=== PATIENT | male | born 1980 | race Two or more races ===

== ENCOUNTER 2017-05-02 13:24 | Emergency (ER) | payer OTHER ==
[2017-05-02 13:29] VITALS: BP 135/74; PULSE 71; TEMP 98.5; BMI 27.3
[2017-05-02] MEDS ORDERED: IBUPROFEN 600 MG TABLET (FP) PO ONE ×2 (14:56→14:59)
--- NOTE | 2017-05-02 15:00 | PDOC ---
History of Present Illness - General Chief Complaint: Laceration Stated Complaint: INJURY Time Seen by Provider: 05/02/17 14:07 History Source: Patient Exam Limitations: No Limitations - History of Present Illness Initial Comments: 05/02/17 14:55 Patient was cutting tile, slipped and incised right hand on the distal dorsal aspect just distal to MCP of right thumb. Able to flex and extend, has a small bleed but not pulsatile. Denies numbness to distal tip Timing/Duration: reports: just prior to arrival Severity: Yes: mild, moderate Location: reports: hands (right thumb) Past History - Travel Traveled outside of the country in the last 30 days: No Close contact w/someone who was outside of country & ill: No - Past Medical History Allergies/Adverse Reactions: Allergies Allergy/AdvReac Type Severity Reaction Status Date / Time No Known Allergies Allergy Verified 05/02/17 13:26 Home Medications: Ambulatory Orders NK [No Known Home Medication] 07/28/14 Other medical history: none - Suicide/Smoking/Psychosocial Hx Smoking History: Never smoked Number of Cigarettes Smoked Daily: 1 Cigars Per Day: 0 Information on smoking cessation initiated: No Hx Alcohol Use: No Drug/Substance Use Hx: No Substance Use Type: None Review of Systems - Review of Systems Able to Perform ROS?: Yes Is the patient limited Ukrainian proficient: Yes Constitutional: Yes: Symptoms Reported, See HPI, Malaise HEENTM: No: Symptoms Reported Musculoskeletal: Yes: Symptoms Reported, See HPI, Joint Pain Integumentary: Yes: Symptoms Reported, Other (laceration ) *Physical Exam - Vital Signs Last Vital Signs Temp Pulse Resp BP Pulse Ox 98.5 F 71 18 135/74 100 05/02/17 13:27 05/02/17 13:27 05/02/17 13:27 05/02/17 13:27 05/02/17 13:27 - Physical Exam General Appearance: Yes: Appropriately Dressed, Apparent Distress, Mild Distress HEENT: positive: AL, Normal ENT Inspection, TMs Normal, Pharynx Normal Neck: positive: Supple Extremity: positive: Normal Capillary Refill, Normal Range of Motion (able to flex and extend against resistance, has 2 cm laceration across dorsal aspect of proximal phalanx of right thumb. Sensation intact distal to injury. No structures noted) Integumentary: positive: Normal Color, Dry, Warm Neurologic: positive: actuary manager II-XII NML intact, Fully Oriented, Alert, Normal Mood/ Affect, Normal Response, Motor Strength 5/5 Procedures - Laceration/Wound Repair Right Dorsal Finger Wound Length: to 2.5 cm Wound Explored: clean Wound's Depth, Shape: superficial, into muscle, linear Irrigated w/ Saline: Yes Betadine Prep: Yes Anesthesia: 1% Lidocaine Wound Repaired With: Sutures Suture Size/Type: 5:0 Number of Sutures: 6 Sterile Dressing Applied: Yes Splint Applied: Yes (finger ) Progress Note - Progress Note Progress Note: , Splint provided, patient instructed to follow-up in 10-14 days for suture removal *DC/Admit/Observation/Transfer Diagnosis at time of Disposition: Laceration of right thumb Qualifiers: Encounter type: initial encounter Damage to nail status: without damage Foreign body presence: without foreign body Qualified Code(s): S61.011A - Laceration without foreign body of right thumb without damage to nail, initial encounter; S61.011A - Laceration without foreign body of right thumb without damage to nail, initial encounter - Discharge Dispostion Disposition: HOME Condition at time of disposition: Stable Admit: No - Patient Instructions Printed Discharge Instructions: DI for Laceration Repair Additional Instructions: Rest, elevate, avoid strenuous activity or heavy lifting until sutures are removed Leave dressing on for the next 24 hours, Then may remove dressing gently and wash area with soap and water. Reapply bacitracin ointment and dressing daily for the next 5 days On day #6 keep the wound protected and cover as needed until sutures are removed allowing wound to start to dry May use Tylenol or Motrin for pain relief Suture removal in : 10- 14 Days
== END 2017-05-02 15:05 | disposition home or self-care (01) ==
LOC: JERFT 13:24
PROC: 0HQFXZZ Repair Right Hand Skin, External Approach (ICD-10-PCS; principal; 2017-05-02)
DX: S61.011A Laceration without foreign body of right thumb without damage to nail, initial encounter (principal); W29.8XXA Contact with other powered hand tools and household machinery, initial encounter; Y93.89 Activity, other specified; Y92.9 Unspecified place or not applicable; Y99.0 Civilian activity done for income or pay
CPT/HCPCS: 99281-25

== ENCOUNTER 2017-05-18 12:22 | Emergency (ER) | payer OTHER ==
[2017-05-18 12:25] VITALS: BP 129/62; PULSE 57; TEMP 98.2; BMI 27.3
--- NOTE | 2017-05-18 12:42 | PDOC ---
Suture Removal/Wound Check HPI - History of Present Illness Chief Complaint: Suture/Staple Removal(Here) Stated Complaint: SUTURE REMOVAL Time Seen by Provider: 05/18/17 12:34 Exam Limitations: Yes: No Limitations Treated at: [facility] Sof[facility] Lopez Date of Last ED visit: 05/02/17 - Previous ED Treatment Type of procedure performed on last visit: Yes: Laceration Repair (right thumb) Tetanus Immunization: Yes: Up to Date Past History - Past Medical History Allergies/Adverse Reactions: Allergies Allergy/AdvReac Type Severity Reaction Status Date / Time No Known Allergies Allergy Verified 05/18/17 12:25 Home Medications: Ambulatory Orders NK [No Known Home Medication] 07/28/14 - Suicide/Smoking/Psychosocial Hx Smoking History: Never smoked Number of Cigarettes Smoked Daily: 1 Cigars Per Day: 0 Hx Alcohol Use: No Drug/Substance Use Hx: No Substance Use Type: None Suture Removal/Wound Check PE - Physical Exam Laceration/Wound Check Symptoms: reports: None Comments: 05/18/17 12:45 right thumb with simple sutures placed well healed edges well approximated *Review of Systems - Review of Systems Able to Perform ROS?: Yes Constitutional: No: Symptoms Reported Procedures - Additional Procedures Progress: 05/18/17 12:45 7 simple interrupted sutures removed from right thumb nv intact FROM edges well healed *DC/Admit/Observation/Transfer Diagnosis at time of Disposition: Suture Removal from skin - Discharge Dispostion Disposition: HOME Condition at time of disposition: Good - Patient Instructions Printed Discharge Instructions: DI for Suture Removal
== END 2017-05-18 12:49 | disposition home or self-care (01) ==
LOC: JERFT 12:22
DX: Z48.02 Encounter for removal of sutures (principal)
CPT/HCPCS: 99281-25

== ENCOUNTER 2019-06-07 18:59 | Emergency (ER) | payer OTHER ==
--- NOTE | 2019-06-07 19:18 | PDOC ---
Rapid Medical Evaluation Time Seen by Provider: 06/07/19 19:16 Medical Evaluation: Allergies Allergy/AdvReac Type Severity Reaction Status Date / Time No Known Allergies Allergy Verified 05/18/17 12:25 06/07/19 19:17 I have performed a brief in-person evaluation of this patient. The patient presents with a chief complaint of: flank pain Pertinent physical exam findings:stable and in NAD, non-focal I have ordered the following:labs The patient will proceed to the ED for further evaluation.
[2019-06-07 19:20] VITALS: BMI 20.9
--- NOTE | 2019-06-07 20:42 | PDOC ---
History of Present Illness - General Chief Complaint: Pain, Acute Stated Complaint: BACK PAIN Time Seen by Provider: 06/07/19 19:16 - History of Present Illness Initial Comments: 06/07/19 20:42 CHIEF COMPLAINT: R flank pain HISTORY OF PRESENT ILLNESS: 38 yo M with no PMH presents to ED with intermittent pain to R flank since this afternoon around 4:30pm. Denies any difficulty with urination, denies hematuria. Denies nausea, vomiting, diarrhea. Patient denies any pain at time of exam. No recent travel or sick contacts. PAST MEDICAL HISTORY: Denies past medical history FAMILY HISTORY: Denies SOCIAL HISTORY: Denies tobacco, alcohol, illicit drug use. SURGICAL HISTORY: Denies ALLERGIES: No known drug allergies REVIEW OF SYSTEMS General/Constitutional: Denies fever or chills. Denies weakness, weight change. HEENT: Denies change in vision. Denies ear pain or discharge. Denies sore throat. Cardiovascular: Denies chest pain or shortness of breath. Respiratory: Denies cough, wheezing, or hemoptysis. Gastrointestinal: Denies nausea, vomiting, diarrhea or constipation. Denies rectal bleeding. Genitourinary: Denies dysuria, frequency, or change in urination. Musculoskeletal: R flank pain. Denies joint or muscle swelling or pain. Denies neck or back pain. Skin and breasts: Denies rash or easy bruising. Neurologic: Denies headache, vertigo, loss of consciousness, or loss of sensation. Psychiatric: Denies depression or anxiety. PHYSICAL EXAM General Appearance: Well-appearing, appropriately dressed. No apparent distress , no intoxication. HEENT: EOMI, PERRLA, normal ENT inspection, normal voice, TMs normal, pharynx normal. No conjunctival pallor. No photophobia, scleral icterus. Neck: Supple. Trachea midline. No tenderness, rigidity, carotid bruit, stridor , lymphadenopathy, or thyromegaly. Respiratory/Chest: Lungs CTAB. No shortness of breath, chest tenderness, respiratory distress, accessory muscle use. No crackles, rales, rhonchi, stridor , wheezing, dullness Cardiovascular: RRR. S1, S2. No JVD, murmur, bradycardia, tachycardia. Vascular Pulses: Dorsalis-Pedis (R): 2+, Dorsalis-Pedis (L): 2+ Gastrointestinal/Abdominal: Normal bowel sounds. Abdomen soft, non-distended. No tenderness or rebound tenderness. No organomegaly, pulsatile mass, guarding , hernia, hepatomegaly, splenomegaly. Lymphatic: No adenopathy, tenderness. Musculoskeletal/Extremities: Normal inspection. FROM of all extremities, normal capillary refill. Pelvis Stable. No CVA tenderness. No tenderness to extremities, pedal edema, swelling, erythema or deformity. Integumentary: Appropriate color, dry, warm. No cyanosis, erythema, jaundice or rash Neurologic: foot setter II-XII intact. Fully oriented, alert. Appropriate mood/affect. Motor strength 5/5. No appreciable EOM palsy, facial droop or sensory deficit. Past History - Past Medical History Allergies/Adverse Reactions: Allergies Allergy/AdvReac Type Severity Reaction Status Date / Time No Known Allergies Allergy Verified 06/07/19 22:20 Home Medications: Ambulatory Orders Ketorolac Tromethamine [Toradol] 10 mg PO TID #21 tablet 06/07/19 COPD: No - Psycho Social/Smoking Cessation Hx Smoking History: Never smoked Number of Cigarettes Smoked Daily: 1 Cigars Per Day: 0 Hx Alcohol Use: No Drug/Substance Use Hx: No Substance Use Type: None *Physical Exam - Vital Signs Last Vital Signs Temp Pulse Resp BP Pulse Ox 98.8 F 62 19 147/65 97 06/07/19 19:17 06/07/19 19:17 06/07/19 19:17 06/07/19 19:17 06/07/19 19:17 ED Treatment Course - LABORATORY CBC & Chemistry Diagram: 06/07/19 20:50 06/07/19 20:50 Medical Decision Making - Medical Decision Making 06/08/19 00:14 38 yo M with no PMH presents to ED with intermittent pain to R flank since this afternoon around 4:30pm. -labs, urine -toradol -renal US US negative for stones but reveals L renal cyst. Patient reassessed after administration of meds and fluids; at this time he states he feels much better. Given RBC in urine with turbid appearance with clinical presentation, patient likely passed kidney stone prior to arrival. Lab and US findings discussed with patient; advised patient to f/u with urology. Patient verbalized understanding and agrees to plan. Discharge - Discharge Information Problems reviewed: Yes Clinical Impression/Diagnosis: Renal cyst Condition: Stable Disposition: HOME - Admission No - Additional Discharge Information Prescriptions: Ketorolac Tromethamine [Toradol] 10 mg PO TID #21 tablet - Follow up/Referral Referrals: Leroy Flores MD [Staff Physician] - - Patient Discharge Instructions Additional Instructions: Please take medications as prescribed. Follow up with the urologist within the next week for further evaluation of your symptoms. If you develop any fever, vomiting, diarrhea, worsening pain, or any new or worsening symptoms, please return to the ER. - Post Discharge Activity
[2019-06-07] MEDS ORDERED: KETOROLAC TROMETHAMINE 30 MG/1 ML VIAL IVPUSH ONE (20:47)
[2019-06-07] MEDS ORDERED: SODIUM CHLORIDE 0.9% 500 ML INFUS.BAG IV ONE (20:49)
[2019-06-07 20:57] LABS: BASO % 1.1 % (0-2.0); EOS % 0.6 % (0-4.5); HEMATOCRIT 43.9 % (35.4-49); HEMOGLOBIN 14.8 GM/dL (11.7-16.9); LYMPH % 20.7 % (8-40); MCH 31.6 pg (25.7-33.7); MCHC 33.6 g/dl (32.0-35.9); MEAN PLT VOLUME 7.6 fl (7.5-11.1); MONO % 7.3 % (3.8-10.2); NEUT % 70.3 % (42.8-82.8); PLATELET COUNT 225 K/MM3 (134-434); RBC 4.67 M/mm3 (4.00-5.60); RDW 13.5 % (11.9-15.9); WHITE BLOOD COUNT 9.2 K/mm3 (4.0-10.0)
[2019-06-07] MEDS ORDERED: KETOROLAC TROMETHAMINE 15 MG/ML VIAL ONE (20:57)
[2019-06-07 21:25] LABS: EPI CELLS 1.2 /HPF (0-5/HPF); HYALINE CASTS 4 /lpf (0-8); URINE APPEARANCE TURBID; URINE BACTERIA 1.7 /hpf (NEGATIVE); URINE BILIRUBIN NEGATIVE (NEGATIVE); URINE COLOR YELLOW; URINE GLUCOSE (UA) NEGATIVE (NEGATIVE); URINE KETONE TRACE (NEGATIVE); URINE LEUK ESTERASE NEGATIVE (NEGATIVE); URINE NITRITE NEGATIVE (NEGATIVE); URINE PROTEIN TRACE (NEGATIVE); URINE RBC 19 /hpf (0-4); URINE WBC 0 /hpf (0-5)
[2019-06-07 21:31] LABS: ALBUMIN 4.4 g/dl (3.4-5.0); BILIRUBIN,TOTAL 0.7 mg/dL (0.2-1); BLOOD UREA NITROGEN 14.9 mg/dL (7-18); CALCIUM 9.1 mg/dL (8.5-10.1); CREATININE 1.1 mg/dL (0.55-1.3); POTASSIUM 4.1 mmol/L (3.5-5.1); TOT PROT 7.5 g/dl (6.4-8.2)
--- NOTE | 2019-06-07 23:09 | PDOC ---
*Physical Exam - Vital Signs Last Vital Signs Temp Pulse Resp BP Pulse Ox 98.4 F 66 17 123/72 96 06/07/19 20:20 06/07/19 20:20 06/07/19 20:20 06/07/19 20:20 06/07/19 20:20 ED Treatment Course - LABORATORY CBC & Chemistry Diagram: 06/07/19 20:50 06/07/19 20:50 - ADDITIONAL ORDERS Additional order review: Laboratory Results 06/07/19 06/07/19 20:56 20:50 Sodium 140 Potassium 4.1 Chloride 108 H Carbon Dioxide 29 Anion Gap 3 L BUN 14.9 Creatinine 1.1 Est GFR (CKD-EPI)AfAm 99.57 Est GFR (CKD-EPI)NonAf 85.91 Random Glucose 94 Calcium 9.1 Total Bilirubin 0.7 AST 15 ALT 30 Alkaline Phosphatase 68 Total Protein 7.5 Albumin 4.4 Urine Color Yellow Urine Appearance Turbid Urine pH 7.0 Ur Specific [place] 1.033 Urine Protein Trace Urine Glucose (UA) Negative Urine Ketones Trace H Urine Blood Trace Urine Nitrite Negative Urine Bilirubin Negative Urine Urobilinogen 1.0 Ur Leukocyte Esterase Negative Urine WBC (Auto) 0 Urine RBC (Auto) 19 Urine Casts (Auto) 4 U Epithel Cells (Auto) 1.2 Urine Bacteria (Auto) 1.7 06/07/19 20:50 RBC 4.67 MCV 94.0 MCHC 33.6 RDW 13.5 MPV 7.6 Neutrophils % 70.3 Lymphocytes % 20.7 Monocytes % 7.3 Eosinophils % 0.6 Basophils % 1.1 - Medications Given in the ED: ED Medications Discontinued Medications Generic Name Dose Route Start Last Admin Trade Name Binta PRN Reason Stop Dose Admin Ketorolac Tromethamine 15 mg 06/07/19 20:47 06/07/19 21:14 Toradol Injection - IVPUSH 06/07/19 20:48 15 mg ONCE ONE Administration Sodium Chloride 1,000 ml 06/07/19 20:49 06/07/19 21:14 Normal Saline - IV 06/07/19 20:50 1,000 ml ONCE ONE Administration Medical Decision Making - Medical Decision Making 06/07/19 23:08 Case reviewed agree with assessment and plan Discharge - Discharge Information Problems reviewed: Yes Clinical Impression/Diagnosis: Renal cyst Condition: Stable Disposition: HOME - Additional Discharge Information Prescriptions: Ketorolac Tromethamine [Toradol] 10 mg PO TID #21 tablet - Follow up/Referral Referrals: Leroy Flores MD [Staff Physician] - - Patient Discharge Instructions Additional Instructions: Please take medications as prescribed. Follow up with the urologist within the next week for further evaluation of your symptoms. If you develop any fever, vomiting, diarrhea, worsening pain, or any new or worsening symptoms, please return to the ER. - Post Discharge Activity
[2019-06-07 23:57] VITALS: BP 126/71; PULSE 68; TEMP 98.1
== END 2019-06-07 23:55 | disposition home or self-care (01) ==
LOC: JER 18:59
PROC: 3E0333Z Introduction of Anti-inflammatory into Peripheral Vein, Percutaneous Approach (ICD-10-PCS; principal; 2019-06-07)
DX: N28.1 Cyst of kidney, acquired (principal)
CPT/HCPCS: 36415; 76775-TC; 80053; 81003; 85025; 87077; 87086; 99283-25

== ENCOUNTER 2019-07-21 23:35 | Emergency (ER) | payer OTHER ==
--- NOTE | 2019-07-22 00:38 | PDOC ---
History of Present Illness - General Stated Complaint: SWOLLEN FACE - History of Present Illness Initial Comments: 07/22/19 00:49 38 year old man with no pmhx who presents with 4 days or R sided jaw pain, swelling and inability to open the mouth. The patient denies any fevers, dental issues or tooth pain, denies trauma, denies any recent medication changes. Has no other complaints. ROS GENERAL/CONSTITUTIONAL: No fever or chills. No weakness. HEAD, EYES, EARS, NOSE AND THROAT: No change in vision. No ear pain or discharge. No sore throat. CARDIOVASCULAR: No chest pain or shortness of breath RESPIRATORY: No cough, wheezing, or hemoptysis. GASTROINTESTINAL: No nausea, vomiting, diarrhea or constipation. GENITOURINARY: No dysuria, frequency, or change in urination. MUSCULOSKELETAL: No joint or muscle swelling or pain. No neck or back pain. SKIN: No rash NEUROLOGIC: No headache, vertigo, loss of consciousness, or change in strength/ sensation. PE GENERAL: Awake, alert, and fully oriented, in no acute distress HEAD: + R sided facial swelling, + ttp of R mandible EYES: EOMI, sclera anicteric, conjunctiva clear ENT: + trismus, no tonsillar swelling, erythema, no uvular swelling or deviations NECK: Normal ROM, supple, no lymphadenopathy, JVD, or masses LUNGS: No distress, speaks full sentences, clear to auscultation bilaterally HEART: Regular rate and rhythm, normal S1 and S2, no murmurs, rubs or gallops, peripheral pulses normal and equal bilaterally. ABDOMEN: Soft, nontender No guarding, no rebound. No masses EXTREMITIES : Normal inspection, Normal range of motion, no edema. No clubbing or cyanosis. NEUROLOGICAL: Cranial nerves II through XII grossly intact. Normal speech, no focal sensorimotor deficits SKIN: Warm, Dry, normal turgor, no rashes or lesions noted MDM DDX including but not limited to: r/o ludwigs angina vs abscess ED Course: labs wnl CT showed Impression. Enlarged lingual, palatine tonsils. Left-sided tonsillolith. Hypodense focus is seen in the lateral aspect of the right palatine tonsils, base of the tongue concerning for phlegmonous changes, without visible abscess. Reactive enlargement of the right jugulodigastric lymph node with enhancement. Enhancing reactive lymph nodes are noted in the right posterior cervical space, right submandibular enhancing reactive lymph nodes. Thickened right platysma with infiltration of the subcutaneous fat along the lateral surface of the right masseter muscle. Patent airways. No evidence of retropharyngeal fluid collection, edema. Patient would most benefit from OMFS evaluation as he has significant trismus [facility] Plan for transfer Kadie Trivedi, PGY2 Emergency Medicine Past History - Past Medical History Allergies/Adverse Reactions: Allergies Allergy/AdvReac Type Severity Reaction Status Date / Time No Known Allergies Allergy Verified 06/07/19 22:20 Home Medications: Ambulatory Orders NK [No Known Home Medication] 07/22/19 COPD: No - Psycho Social/Smoking Cessation Hx Smoking History: Never smoked Number of Cigarettes Smoked Daily: 1 Cigars Per Day: 0 Hx Alcohol Use: No Drug/Substance Use Hx: No Substance Use Type: None ED Treatment Course - LABORATORY CBC & Chemistry Diagram: 07/22/19 01:00 07/22/19 01:00 Discharge - Discharge Information Problems reviewed: Yes Clinical Impression/Diagnosis: Abscess Disposition: TRANSFER ACUTE CARE/OTHER HOSP - Follow up/Referral - Patient Discharge Instructions - Post Discharge Activity
[2019-07-22] MEDS ORDERED: ACETAMINOPHEN 1000 MG/100 ML VIAL (NON FORMULARY) IVPB ONE (00:48)
[2019-07-22 00:49] VITALS: BMI 32.2
[2019-07-22] MEDS ORDERED: SODIUM CHLORIDE 500 ML IV SCH (01:00)
[2019-07-22] MEDS ORDERED: ACETAMINOPHEN INJECTION 100 ML IVPB ONE (01:16)
[2019-07-22 01:25] LABS: BASO % 1.4 % (0-2.0); EOS % 0.6 % (0-4.5); HEMATOCRIT 42.3 % (35.4-49); HEMOGLOBIN 14.4 GM/dL (11.7-16.9); LYMPH % 15.6 % (8-40); MCH 31.7 pg (25.7-33.7); MEAN CELL VOLUME 93.3 fl (80-96); MEAN PLT VOLUME 7.7 fl (7.5-11.1); MONO % 7.5 % (3.8-10.2); NEUT % 74.9 % (42.8-82.8); PLATELET COUNT 200 K/MM3 (134-434); RBC 4.53 M/mm3 (4.00-5.60); RDW 13.1 % (11.9-15.9); WHITE BLOOD COUNT 8.6 K/mm3 (4.0-10.0)
[2019-07-22] MEDS ORDERED: CLINDAMYCIN 600MG PREMIX IVPB 600 MG/50 ML BAG IVPB ONE ×2 (01:50→01:58)
[2019-07-22 01:51] LABS: ALBUMIN 3.8 g/dl (3.4-5.0); BLOOD UREA NITROGEN 9.7 mg/dL (7-18); CALCIUM 8.2 mg/dL (8.5-10.1); CREATININE 0.8 mg/dL (0.55-1.3); POTASSIUM 3.8 mmol/L (3.5-5.1)
--- NOTE | 2019-07-22 01:59 | PDOC ---
Attending Attestation - Resident Resident Name: Kadie Trivedi - ED Attending Attestation I have performed the following: I have examined & evaluated the patient, The case was reviewed & discussed with the resident, I agree w/resident's findings & plan - HPI HPI: 07/22/19 01:56 Pt ate something hard at a green party on [employer] [place] on the The next day he was complaining of pain. Now with swelling of face that is getting worse. Pt has pus draining from the buccal mucosa adjacent to the right maxillary teeth. Pt has no fever and no chills. He has no throat pain and no difficulty breathing. - Physicial Exam PE: 07/22/19 01:58 Afebrile VSS A+Ox3 NAD heart and lungs normal abd and flank no pain - Medical Decision Making 07/22/19 01:58 IVF; clinda 07/22/19 02:00 CBC normal; no WBC elevation Chem shows Na is elevated. Pt dehydrated. 07/22/19 06:31 Patient Name: KIKA GARCIA THIS IS A PRELIMINARY REPORT FROM [facility] DATE OF SERVICE: 2019-07-22 01:29:32 IMAGES: [id number] EXAM: SOFT TISSUE NECK CT WITH CONTR HISTORY trismus with right mandible pain COMPARISON: None. FINDINGS: Nasopharynx is normal. There is a 1.4 cm x 8.2 mm low-density focus in the lateral aspect of the right palatine tonsil and adjacent to the right posterior tongue base which could represent a phlegmon that has not yet matured into an abscess. There may be some questionable infiltration of the fat of the right parapharyngeal space. The pterygoid muscles themselves appear unremarkable. Hypopharynx, epiglottis and larynx and vocal cords are normal. Cervical airway is patent. Parotid and submandibular glands are normal. Thyroid is unremarkable. Mucosal thickening and retention cysts/polyps in the maxillary sinuses. Findings discussed with DDr. Trivedi Pt will be transferred to a hospital with ENT; patient requesting [facility] [place]
[2019-07-22 05:54] VITALS: BP 127/73; PULSE 71; TEMP 98.3
== END 2019-07-22 04:00 | disposition short-term general hospital (02) ==
LOC: JER 23:35
PROC: 3E03329 Introduction of Other Anti-infective into Peripheral Vein, Percutaneous Approach (ICD-10-PCS; principal; 2019-07-21)
PROC: 3E033NZ Introduction of Analgesics, Hypnotics, Sedatives into Peripheral Vein, Percutaneous Approach (ICD-10-PCS; 2019-07-21)
DX: K12.2 Cellulitis and abscess of mouth (principal)
CPT/HCPCS: 36415; 70491-TC; 80053; 85025; 96365; 96375; 99284-25; J0131; J7030; Q9967

== ENCOUNTER 2022-07-04 21:20 | Emergency (ER) | payer OTHER ==
[2022-07-04 21:36] VITALS: BP 164/94; PULSE 57; RESP 20; TEMP 98.2; BMI 34.2
[2022-07-04 22:12] LABS: EPI CELLS 9 /uL (0-25.1); HYALINE CASTS 1 /uL (0-3.1); PH,URINE 5.5 (5.0-8.0); URINE APPEARANCE CLOUDY; URINE BACTERIA 13 /uL (0-1359); URINE BILIRUBIN NEGATIVE (NEGATIVE); URINE COLOR ORANGE; URINE GLUCOSE (UA) NEGATIVE (NEGATIVE); URINE KETONE TRACE (NEGATIVE); URINE LEUK ESTERASE TRACE (NEGATIVE); URINE NITRITE NEGATIVE (NEGATIVE); URINE PROTEIN 2+ (NEGATIVE); URINE RBC 12221 /uL (0-23.9); URINE WBC 26 /uL (0-25.8)
[2022-07-04] MEDS ORDERED: SODIUM CHLORIDE 1,000 ML IV STA (22:32)
[2022-07-04] MEDS ORDERED: KETOROLAC TROMETHAMINE 30 MG/1 ML VIAL IVPUSH ONE (22:32)
[2022-07-04] MEDS ORDERED: KETOROLAC TROMETHAMINE 30 MG/1 ML VIAL ONE (22:42)
[2022-07-04 22:54] LABS: BASO % 0.6 % (0-2.0); EOS % 0.8 % (0-4.5); HEMATOCRIT 46.6 % (35.4-49); HEMOGLOBIN 15.6 GM/dL (11.7-16.9); LYMPH % 20.5 % (8-40); MCHC 33.5 g/dl (32.0-35.9); MEAN CELL VOLUME 92.6 fl (80-96); MEAN PLT VOLUME 7.5 fl (7.5-11.1); MONO % 8.2 % (3.8-10.2); NEUT % 69.9 % (42.8-82.8); PLATELET COUNT 260 10^3/uL (134-434); RBC 5.04 M/mm3 (4.00-5.60); RDW 14.1 % (11.9-15.9)
[2022-07-04 23:16] LABS: ALBUMIN 4.4 g/dl (3.4-5.0); CALCIUM 9.9 mg/dL (8.5-10.1)
[2022-07-04 23:17] LABS: BLOOD UREA NITROGEN 14.1 mg/dL (7-18)
[2022-07-04 23:20] LABS: CREATININE 1.3 mg/dL (0.55-1.3)
[2022-07-04 23:21] LABS: TOT PROT 8.4 g/dl (6.4-8.2)
== END 2022-07-05 01:20 | disposition home or self-care (01) ==
LOC: JER 21:20
PROC: 3E0333Z Introduction of Anti-inflammatory into Peripheral Vein, Percutaneous Approach (ICD-10-PCS; principal; 2022-07-04)
PROC: 3E0337Z Introduction of Electrolytic and Water Balance Substance into Peripheral Vein, Percutaneous Approach (ICD-10-PCS; 2022-07-04)
DX: N20.0 Calculus of kidney (principal)
CPT/HCPCS: 36415; 74176-TC; 80053; 81003; 85025; 87086; 99284-25

== ENCOUNTER 2022-07-08 23:05 | Emergency (ER) | payer OTHER ==
[2022-07-08 23:14] VITALS: BP 151/77; PULSE 60; RESP 20; TEMP 98.3; BMI 36.0
[2022-07-09] MEDS ORDERED: SODIUM CHLORIDE 1,000 ML IV STA (00:21)
[2022-07-09] MEDS ORDERED: KETOROLAC TROMETHAMINE 30 MG/1 ML VIAL IVPUSH ONE (00:21)
[2022-07-09 00:25] LABS: PH,URINE 5.5 (5.0-8.0); URINE APPEARANCE CLEAR; URINE BILIRUBIN NEGATIVE (NEGATIVE); URINE COLOR YELLOW; URINE GLUCOSE (UA) NEGATIVE (NEGATIVE); URINE KETONE TRACE (NEGATIVE); URINE LEUK ESTERASE NEGATIVE (NEGATIVE); URINE NITRITE NEGATIVE (NEGATIVE); URINE PROTEIN TRACE (NEGATIVE)
[2022-07-09 00:27] LABS: BASO % 0.6 % (0-2.0); EOS % 0.9 % (0-4.5); HEMATOCRIT 44.9 % (35.4-49); HEMOGLOBIN 15.5 GM/dL (11.7-16.9); LYMPH % 20.1 % (8-40); MCH 31.7 pg (25.7-33.7); MCHC 34.4 g/dl (32.0-35.9); MEAN CELL VOLUME 91.9 fl (80-96); MEAN PLT VOLUME 7.1 fl (7.5-11.1); MONO % 9.6 % (3.8-10.2); NEUT % 68.8 % (42.8-82.8); PLATELET COUNT 264 10^3/uL (134-434); RBC 4.89 M/mm3 (4.00-5.60); RDW 13.7 % (11.9-15.9); WHITE BLOOD COUNT 9.6 K/mm3 (4.0-10.0)
[2022-07-09] MEDS ORDERED: KETOROLAC TROMETHAMINE 30 MG/1 ML VIAL ONE (00:28)
[2022-07-09 00:46] LABS: BLOOD UREA NITROGEN 14.1 mg/dL (7-18); CALCIUM 9.6 mg/dL (8.5-10.1)
[2022-07-09 00:49] LABS: CREATININE 1.2 mg/dL (0.55-1.3)
[2022-07-09 00:51] LABS: BILIRUBIN,TOTAL 0.6 mg/dL (0.2-1)
== END 2022-07-09 01:21 | disposition home or self-care (01) ==
LOC: JER 23:05
PROC: 3E033GC Introduction of Other Therapeutic Substance into Peripheral Vein, Percutaneous Approach (ICD-10-PCS; principal; 2022-07-08)
DX: N20.0 Calculus of kidney (principal); N28.1 Cyst of kidney, acquired
CPT/HCPCS: 36415; 76775-TC; 80053; 81003; 83690; 85025; 87086; 99284-25

== ENCOUNTER 2024-06-11 16:08 | Emergency (ER) | payer OTHER ==
[2024-06-11 16:44] VITALS: BP 113/76; PULSE 88; RESP 18; TEMP 98.9; BMI 36.3
[2024-06-11] MEDS ORDERED: DIPHTH,PERTUSS(ACELL),TET 0.5 ML DISP.SYRIN IM ONE (17:31)
[2024-06-11] MEDS: DIPHTH,PERTUSS(ACELL),TET 0.5 ML DISP.SYRIN IM ONE (17:46)
[2024-06-11 19:20] LABS: HIV INTERPRETATION NEGATIVE (NEGATIVE)
== END 2024-06-11 17:51 | disposition home or self-care (01) ==
LOC: JERFT 16:08
PROC: 0HQGXZZ Repair Left Hand Skin, External Approach (ICD-10-PCS; principal; 2024-06-11)
PROC: 3E0234Z Introduction of Serum, Toxoid and Vaccine into Muscle, Percutaneous Approach (ICD-10-PCS; 2024-06-11)
DX: S61.412A Laceration without foreign body of left hand, initial encounter (principal); W26.0XXA Contact with knife, initial encounter; Z23 Encounter for immunization
CPT/HCPCS: 12002-25; 36415; 86803; 87389; 90471; 90715; 99284-25

== ENCOUNTER 2025-03-26 07:26 | Inpatient (IN) | payer OTHER ==
[2025-03-26 07:53] VITALS: BMI 35.3
[2025-03-26] MEDS: morphine CARPU-JECT 4 MG/1 ML DISP.SYRIN IVPUSH ONE (08:52)
[2025-03-26 09:02] LABS: ABSOLUTE IMMATURE GRANULOCYTES 0.06 x10^3/uL (0.0-0.031); BASOPHILS # 0.05 x10^3/uL (0.01-0.08); EOSINOPHIL % 0.2 % (0.8-7.0); EOSINOPHILS # 0.02 x10^3/uL (0.04-0.54); MCHC 33.6 g/dl (32.3-36.5); MEAN CELL VOLUME 92.6 fl (79.0-92.2); MEAN PLT VOLUME 9.1 fl (9.4-12.4); MONOCYTE # 0.82 x10^3/uL (0.30-0.82); MONOCYTE % 7.2 % (5.3-12.2); RDW 12.9 % (12.1-15.9)
[2025-03-26 09:08] LABS: INR 1.06 (0.83-1.09); PROTHROMBIN TIME (PATIENT) 11.5 SEC (9.7-13.0)
[2025-03-26 09:11] LABS: ACTIVATED PTT 29.1 SECONDS (25.2-36.5)
[2025-03-26 09:18] LABS: URINE APPEARANCE CLEAR; URINE BILIRUBIN NEGATIVE (NEGATIVE); URINE COLOR YELLOW; URINE GLUCOSE (UA) NEGATIVE (NEGATIVE); URINE KETONE NEGATIVE (NEGATIVE); URINE LEUK ESTERASE NEGATIVE (NEGATIVE); URINE NITRITE NEGATIVE (NEGATIVE); URINE PROTEIN NEGATIVE (NEGATIVE); URINE UROBILINOGEN 2.0 mg/dL (0.2-1.0)
[2025-03-26] MEDS: LACTATED RINGERS SOLUTION 1000 ML INFUS.BAG IV ONE (09:21)
[2025-03-26 09:27] LABS: GLUCOSE,RANDOM 126.0 mg/dL (74-106)
[2025-03-26 09:28] LABS: TOT PROT 7.8 g/dl (6.4-8.2)
[2025-03-26 09:29] LABS: CO2 23.0 mmol/L (21-32)
[2025-03-26 09:31] LABS: ALK PHOS 95.0 U/L (40-150)
[2025-03-26 09:33] LABS: SGOT/AST 282.0 U/L (5-34); SGPT/ALT 185.0 U/L (0-55)
[2025-03-26 09:34] LABS: CREATININE 1.01 mg/dL (0.55-1.3)
[2025-03-26 10:04] LABS: HCV DIAGNOSTIC IN-HOUSE W/RFLX NON-REACTIVE (NONREACTIVE)
[2025-03-26 10:11] LABS: HIV INTERPRETATION NEGATIVE (NEGATIVE)
[2025-03-26] MEDS ORDERED: morphine CARPU-JECT 4 MG/1 ML DISP.SYRIN IVPUSH PRN (10:14)
[2025-03-26] MEDS ORDERED: KETOROLAC TROMETHAMINE 15 MG/ML VIAL IVPUSH PRN (10:15)
[2025-03-26] MEDS ORDERED: CEFTRIAXONE 1 GM/50 ML BAG ONE (10:47)
[2025-03-26] MEDS: NAPH,MB-DB/K PH,MBDB POWDER PACKET PO ONE (11:05)
[2025-03-26] MEDS ORDERED: NAPH,MB-DB/K PH,MBDB POWDER PACKET ONE (11:07)
[2025-03-26] MEDS: LACTATED RINGERS SOLUTION 1,000 ML/1,000 ML INFUS.BAG IV SCH (11:38)
[2025-03-27] MEDS ORDERED: BUPIVACAINE HCL/PF 0.25% (2.5MG/ML) 10 ML VIAL ONE (07:23)
[2025-03-27] MEDS ORDERED: SUCCINYLCHOLINE CHLORIDE 200 MG/10 ML SYRINGE ONE (07:35)
[2025-03-27] MEDS ORDERED: ROCURONIUM BROMIDE 50 MG/5 ML SYRINGE ONE (07:35)
[2025-03-27] MEDS ORDERED: MIDAZOLAM HCL 2 MG/2 ML SINGLE DOSE VIAL ONE (07:37)
[2025-03-27] MEDS ORDERED: LIDOCAINE HCL/PF 2% SDV 5ML VIAL ONE (07:38)
[2025-03-27] MEDS ORDERED: KETOROLAC TROMETHAMINE 30 MG/1 ML VIAL ONE (07:38)
[2025-03-27] MEDS ORDERED: DEXAMETHASONE SOD PHOSPHATE 4 MG/1 ML VIAL ONE (07:38)
[2025-03-27] MEDS ORDERED: ONDANSETRON 4 MG/2 ML VIAL ONE (07:38)
[2025-03-27] MEDS ORDERED: GLYCOPYRROLATE 0.2 MG/1 ML VIAL ONE (07:38)
[2025-03-27] MEDS ORDERED: PROPOFOL 40 ML ONE (07:39)
[2025-03-27] MEDS ORDERED: HEPARIN NA (PORCINE) 5,000 UNITS/ML 1ML VIAL ONE (08:00)
[2025-03-27] MEDS ORDERED: cefOXitin SODIUM 2 GM VIAL (RESTRICTED TO ID) IVPB ONE (08:00)
[2025-03-27] MEDS ORDERED: ACETAMINOPHEN INJECTION 100 ML ONE (08:09)
[2025-03-27] MEDS: cefOXitin SODIUM 2 GM VIAL (RESTRICTED TO ID) IVPB ONE (08:40)
[2025-03-27] MEDS: HEPARIN NA (PORCINE) 5,000 UNITS/ML 1ML VIAL SQ ONE (08:48)
[2025-03-27] MEDS: BUPIVACAINE HCL/PF 0.25% (2.5MG/ML) 10 ML VIAL IJ ONE (08:59)
[2025-03-27 09:16] LABS: GLUCOSE,RANDOM 91.0 mg/dL (74-106)
[2025-03-27 09:17] LABS: TOT PROT 6.6 g/dl (6.4-8.2)
[2025-03-27 09:18] LABS: CO2 27.0 mmol/L (21-32)
[2025-03-27 09:19] LABS: ALK PHOS 110.0 U/L (40-150)
[2025-03-27 09:22] LABS: CREATININE 0.98 mg/dL (0.55-1.3); SGOT/AST 143.0 U/L (5-34); SGPT/ALT 300.0 U/L (0-55)
[2025-03-27] MEDS ORDERED: SUGAMMADEX SODIUM 200 MG/2 ML VIAL ONE (09:50)
[2025-03-27] MEDS ORDERED: LACTATED RINGERS SOLUTION 1,000 ML IV SCH (10:30)
[2025-03-27] MEDS: LACTATED RINGERS SOLUTION 1,000 ML IV SCH (10:58)
[2025-03-27] MEDS: CEFOXITIN SODIUM 2 GM in DEXTROSE 5%-WATER - 100 ML IVPB SCH (17:13)
[2025-03-27 17:40] LABS: ABSOLUTE IMMATURE GRANULOCYTES 0.04 x10^3/uL (0.0-0.031); BASOPHILS # 0.02 x10^3/uL (0.01-0.08); EOSINOPHIL % 0.0 % (0.8-7.0); EOSINOPHILS # 0.00 x10^3/uL (0.04-0.54); MCHC 33.8 g/dl (32.3-36.5); MEAN CELL VOLUME 91.9 fl (79.0-92.2); MONOCYTE # 0.18 x10^3/uL (0.30-0.82); MONOCYTE % 1.8 % (5.3-12.2); RDW 12.7 % (12.1-15.9)
[2025-03-27 17:42] LABS: MEAN PLT VOLUME 9.0 fl (9.4-12.4)
[2025-03-27 18:37] LABS: GLUCOSE,RANDOM 139.0 mg/dL (74-106); TOT PROT 6.7 g/dl (6.4-8.2)
[2025-03-27 18:38] LABS: CO2 25.0 mmol/L (21-32)
[2025-03-27 18:40] LABS: ALK PHOS 122.0 U/L (40-150)
[2025-03-27 18:42] LABS: SGPT/ALT 336.0 U/L (0-55)
[2025-03-27 18:43] LABS: CREATININE 0.92 mg/dL (0.55-1.3); SGOT/AST 185.0 U/L (5-34)
[2025-03-28 07:54] LABS: ABSOLUTE IMMATURE GRANULOCYTES 0.04 x10^3/uL (0.0-0.031); BASOPHILS # 0.02 x10^3/uL (0.01-0.08); EOSINOPHIL % 0.2 % (0.8-7.0); EOSINOPHILS # 0.02 x10^3/uL (0.04-0.54); MCHC 33.8 g/dl (32.3-36.5); MEAN CELL VOLUME 91.5 fl (79.0-92.2); MEAN PLT VOLUME 9.0 fl (9.4-12.4); MONOCYTE # 0.83 x10^3/uL (0.30-0.82); MONOCYTE % 7.4 % (5.3-12.2); RDW 13.1 % (12.1-15.9)
[2025-03-28 08:36] LABS: GLUCOSE,RANDOM 105.0 mg/dL (74-106)
[2025-03-28 08:37] LABS: CO2 21.0 mmol/L (21-32)
[2025-03-28 08:42] LABS: CREATININE 0.99 mg/dL (0.55-1.3)
[2025-03-28 09:04] LABS: TOT PROT 6.3 g/dl (6.4-8.2)
[2025-03-28 09:07] LABS: ALK PHOS 110.0 U/L (40-150)
[2025-03-28 09:09] LABS: SGPT/ALT 286.0 U/L (0-55)
[2025-03-28 09:10] LABS: SGOT/AST 108.0 U/L (5-34)
[2025-03-28] MEDS: ENOXAPARIN NA (PORCINE) 40 MG/0.4 ML DISP.SYRIN SQ SCH (09:28)
[2025-03-28] MEDS: MAGNESIUM SULFATE IN WATER 2 GM/50 ML IVPB IVPB ONE (10:42)
[2025-03-28 12:41] VITALS: BP 100/60; PULSE 56; RESP 16; TEMP 98.7
== END 2025-03-28 13:30 | disposition home or self-care (01) | DRG 263 ==
LOC: JER 07:26 → JERBED 11:34 → J5S 14:02
PROVIDERS: ADMIT Internal Medicine; ATTEND Internal Medicine
PROC: 0FT44ZZ Resection of Gallbladder, Percutaneous Endoscopic Approach (ICD-10-PCS; principal; 2025-03-27 08:00)
DX: K80.00 Calculus of gallbladder with acute cholecystitis without obstruction (principal); E83.39 Other disorders of phosphorus metabolism; E80.6 Other disorders of bilirubin metabolism; R74.01 Elevation of levels of liver transaminase levels
CPT/HCPCS: 36415; 76705-TC; 80048; 80053; 80076; 81003; 82248; 83690; 83735; 84100; 84484; 85025; 85610; 85730; 86803; 86850; 86900; 86901; 87086; 87389; 88304-TC; 93005; 93010; 94010; 94760; 99285-25